=== PATIENT | female | born 1990 | race Caucasian/White ===

== ENCOUNTER 2018-08-04 07:32 | Emergency (ER) | payer MEDICAID ==
[~2018-08-04] VITALS: Ht 157.5 cm; Wt 59.0 kg
[~2018-08-04 07:32] MED LIST: IBUP-1222 PO; NITR100C56 PO; OXYC-302 PO; PREN1TAB60 PO
--- NOTE | 2018-08-04 07:55 | NUR ---
FIRST CONTACT WITH PT. BAILEY. Pt resting on gurney. Parents at bedside. Per pt, "for the last year and a half I have had these headaches. They make me feel nauseated. I then vomit. I have body aches starting yesterday. I don't feel nauseated, I just throw up when the pain comes. I went to [facility] about a year ago and they didn't do anything." Per family, "we are afraid it is a tumor." Pt onnected to NIBP, and continous pulse ox. Pt c/o RL Flank pain, headache pain at the temples and lower jaw /10, and "sometimes" epigastric pain. Per pt "my last period was a week ago, I got my tubes tied, I am not ." Call light within reach. Pt has unlabored respirations with even chest rise and fall.
[2018-08-04] MEDS ORDERED: SODIUM CHLORIDE 0.9% 1,000ML IVBOLUS ONE (08:30)
[2018-08-04] MEDS ORDERED: KETOROLAC 30 MG/1 ML IVPush ONE (08:30)
[2018-08-04] MEDS ORDERED: SODIUM CHLORIDE FLUSH 10ML SYR IVF ONE (08:30)
[2018-08-04] MEDS ORDERED: PROCHLORPERAZINE 5 MG/ML, 2ML IVPush ONE (08:30)
[2018-08-04] MEDS ORDERED: DIPHENHYDRAMINE 50 MG/ML, 1ML IVPush ONE (08:30)
--- NOTE | 2018-08-04 08:32 | NUR ---
Pt transported on gurney to [facility]. All safety measures in place.
[2018-08-04] MEDS ORDERED: DIPHENHYDRAMINE 50 MG/ML, 1ML ONE (08:59)
[2018-08-04] MEDS ORDERED: KETOROLAC 30 MG/1 ML ONE (08:59)
[2018-08-04] MEDS ORDERED: PROCHLORPERAZINE 5 MG/ML, 2ML ONE (08:59)
[2018-08-04 09:10] LABS: BASOPHILS # (AUTO) 0.03 x10^3/uL (0-0.1); BASOPHILS % (AUTO) 0 % (0-1); EOSINOPHILS # (AUTO) 0.02 x10^3/uL (0-0.4); EOSINOPHILS % (AUTO) 0 % (1-7); LYMPHOCYTES # (AUTO) 1.68 x10^3/uL (1-3.4); LYMPHOCYTES % (AUTO) 21 % (22-44); MD NO; MEAN CORPUSCULAR HEMOGLOBIN 21.6 pg (27.0-34.8); MEAN CORPUSCULAR HGB CONC 31.1 g/dL (32.4-35.8); MEAN CORPUSCULAR VOLUME 69.6 fL (80-100); MEAN PLATELET VOLUME 9.4 fL (7.4-10.4); MONOCYTES # (AUTO) 0.46 x10^3/uL (0.2-0.8); MONOCYTES % (AUTO) 6 % (2-9); NEUTROPHILS # (AUTO) 5.99 x10^3/uL (1.8-6.8); NEUTROPHILS % (AUTO) 73 % (42-75); PLATELET COUNT 338 x10^3/uL (130-400); RED BLOOD COUNT 5.14 x10^6/uL (3.82-5.3)
[2018-08-04 09:17] LABS: ALBUMIN 3.9 g/dL (3.4-5.0); ANION GAP 6 mmol/L (5-15); CALCIUM 8.5 mg/dL (8.5-10.1); CHLORIDE 110 mmol/L (98-107)
--- NOTE | 2018-08-04 09:25 | NUR ---
Provided medication per EMAR. PIV fluids infusing per EMAR. Pt appreciative. NADN. All safety measures in place. Call light within reach. Pt aware of need of urine sample for UA.
[2018-08-04 10:28] LABS: CULTURE INDICATED? YES; MICROSCOPIC INDICATED
--- NOTE | 2018-08-04 11:14 | NUR ---
CARE FOR DC ONLY PROVIDED. PT SITTING UP ON GURNEY. NO ACUTE DISTRESS NOTED. IV DC'D WITH CANNULA INTACT. REVIEWED DC INSTRUCTIONS WITH PT. UNDERSTANDING VERBALIZED. PT LEFT AMB, GAIT STEADY WITH FAMILY.
[2018-08-04 11:15] VITALS: BP 97/58
== END 2018-08-04 11:24 | disposition home or self-care (01) ==
LOC: ED 11:12
DX: R51 Headache (principal); R07.89 Other chest pain; R11.2 Nausea with vomiting, unspecified
CPT/HCPCS: 36415; 70450; 80048; 81001; 82040; 85025; 87086; 93005; 96361; 96374; 96375; 99284; J0780; J1200; J1885; J7030